=== PATIENT | female | born 1980 | race Caucasian/White ===

== ENCOUNTER 2022-05-26 17:01 | Emergency (ER) | payer BC, SELFPAY ==
[2022-05-26 17:12] VITALS: BP 137/72; PULSE 97; RESP 18; TEMP 36.3; O2SAT 97; BMI 51.5
--- NOTE | 2022-05-26 18:29 | ED.GENADULT ---
HPI - General Adult General Time Seen by Provider: 18:28 Date Seen: 05/26/22 Chief complaint: Cough Stated complaint: CHEST PAIN Time Seen by Provider: 05/26/22 17:53 History of Present Illness HPI narrative: This 41-year-old female comes in reporting cough and congestion for the past 4 days. She does not report any fever or shortness of breath. She states that she has some chest discomfort related to her cough. She has tested herself a few times for COVID and these returned negative. Related Data Home Medications Medication Instructions Recorded Confirmed loratadine 10 mg tablet (Claritin) 10 mg PO DAILY 05/26/22 05/26/22 Allergies Allergy/AdvReac Type Severity Reaction Status Date / Time adhesive tape AdvReac Mild Rash Verified 05/26/22 17:11 Review of Systems Status of ROS: Reports: 10 or more systems reviewed and unremarkable except as noted in History and below Narrative: Constitutional: No fevers, no weight gain or loss. Eyes: No discharge. No vision changes. HENT: No congestion, no sore throat, no ear pain. Cardiovascular: No chest pain, no palpitations. Respiratory: No shortness of breath, no wheezes . Frequent nonproductive cough. Gastrointestinal: No abdominal pain, no vomiting, no diarrhea. Genitourinary: No dysuria, no hematuria. Musculoskeletal: Normal range of motion. Skin: No rashes, no pruritis. Neurological: No dizziness, weakness, sensory change, speech change. Endo/Heme/Allergies: No bruising or bleeding. No polydipsia. Pysch: no suicidality, no anxiety, no insomnia. All other systems reviewed and are negative. Exam Narrative: Exam Narrative: Constitutional: Well-developed, well-nourished, no acute distress. HEENT: Normocephalic, atraumatic. Neck: Normal range of motion. Nontender. Supple. Heart: Regular. No murmurs. Normal rate. Intact distal pulses. Lungs: Clear to auscultation. No chest discomfort. No wheezes, rhonchi, or rales. Abdomen: Normal bowel sounds. Nontender. No rebound tenderness. Genitalia: Deferred. Back: No midline tenderness. Normal range of motion. Extremities: Normal range of motion. No injury. Skin: Intact. No rash. Warm. No erythema or pallor. Neurologic: No altered sensation. No weakness. Alert and oriented. Psychiatric: No suicidality. No anxiety or depression. No insomnia. Nursing notes and vitals signs are reviewed. Const: Vital Signs, click to edit/add: Vital Signs - 24 hr 05/26/22 17:12 Temperature 97.3 F L Pulse Rate [Right Pulse Oximeter] 97 Respiratory Rate 18 Blood Pressure [Ri ght Upper Arm] 137/72 Pulse Oximetry 97 Course Vital Signs Vital signs: Initial Vital Signs Temperature 97.3 F L 05/26/22 17:12 Temperature Source Temporal Artery Scan 05/26/22 17:12 Pulse Rate 97 05/26/22 17:12 Respiratory Rate 18 05/26/22 17:12 Blood Pressure 137/72 05/26/22 17:12 Blood Pressure Mean 93 05/26/22 17:12 Blood Pressure Position Sitting 05/26/22 17:12 Pulse Oximetry 97 05/26/22 17:12 Oxygen Delivery Method 05/26/22 17:12 Vital Signs Temperature 97.3 F L 05/26/22 17:12 Pulse Rate 97 05/26/22 17:12 Respiratory Rate 18 05/26/22 17:12 Blood Pressure 137/72 05/26/22 17:12 Pulse Oximetry 97 05/26/22 17:12 Temperature 97.3 F L 05/26/22 17:12 Pulse Rate 97 05/26/22 17:12 Respiratory Rate 18 05/26/22 17:12 Blood Pressure 137/72 05/26/22 17:12 Pulse Oximetry 97 05/26/22 17:12 Medical Decision Making [facility] Narrative Medical decision making narrative: This patient comes with typical upper respiratory infection symptoms but has normal vital signs and actually a normal exam also. I did discuss the role of lab and imaging studies which she declined in a process of shared decision making. She did receive an oral dose of dexamethasone 10 mg and a prescription for Medrol Dosepak and Tylenol 3. Discharge Plan Discharge Clinical Impression: Acute upper respiratory infection Patient Disposition: Home, Self-Care Condition: Stable Instructions: Upper Respiratory Infection (ED) Additional Instructions: upper respiratory infection. Take medication as prescribed and needed. Follow up with MD or return if worsening, especially if becoming short of breath. Activity Level: Activity as Tolerated Prescriptions: No Action loratadine [Claritin] 10 mg tablet 10 mg PO DAILY 0RF Follow Up/Referrals: Lizabeth Huerta MD [Primary Care Provider] - Stand Alone Forms: MyHealth Info Instructions
[2022-05-26] MEDS: dexAMETHasone 10 MG/ML inj IVP (18:35)
[2022-05-26 18:45] VITALS: PULSE 96; RESP 18; O2SAT 96
== END 2022-05-26 18:50 | disposition home or self-care (01) ==
PROVIDERS: Emergency Provider Emergency Medicine Emergency Medical Services; PCP Family Medicine
DX: J06.9 Acute upper respiratory infection, unspecified (principal)
CPT/HCPCS: 99283; 99284; J1100